=== PATIENT | male | born 1965 | race African-American/Black ===

== ENCOUNTER 2017-01-02 12:31 | Outpatient (CLI) | payer MEDICARE ==
--- NOTE | 2017-01-02 19:13 | RAD ---
LEFT FOOT THREE VIEWS 01/02/17 Comparison is made with a 02/29/[address] [facility]. There has been prior amputation of the great toe at the level of the distal first metatarsal shaft a nd the second toe at the second MTP joint. There is bony overgrowth at the end of the remaining first metatarsal. There were no areas of bony d isruption here to strongly suggest active osteomyelitis. MRI or nuclear bone scanning would be more sensitive, however. There is some periosteal reaction and mild sclerosis of the second metatarsal. T here is some deformity of the second metatarsal head. All of this appears more likely chronic than a cute, however. The remainder of the foot appeared intact. IMPRESSION: Chronic changes but nothing that was strongly suggestive of osteomyelitis (with the caveat that plai n films often are the last to show change). POS: HOME
== END 2017-01-02 12:32 | disposition home or self-care (01) ==
LOC: BURRAD 12:31
PROVIDERS: ATTEND Family Medicine
DX: E11.621 Type 2 diabetes mellitus with foot ulcer (principal); L97.509 Non-pressure chronic ulcer of other part of unspecified foot with unspecified severity

== ENCOUNTER 2017-03-14 14:53 | Outpatient (CLI) | payer MEDICARE ==
--- NOTE | 2017-03-14 17:20 | RAD ---
LEFT FOOT THREE VIEWS: 03/14/17 Comparison is made with the 01/02/17 study. Prior amputation of the great toe at the level of the dist al first metatarsal is seen, as well as amputation of the second toe at the second MTP joint. There is deformity of the second metatarsal head. The ends of the first and second metatarsal are irregula rity but look no different than the prior study. There are currently no plain film findings that wou ld strongly suggest osteomyelitis. The bones are otherwise unremarkable. IMPRESSION: Chronic changes but no acute bony findings. POS: HOME
== END 2017-03-14 14:54 | disposition home or self-care (01) ==
LOC: BURRAD 14:53
PROVIDERS: ATTEND Podiatrist Foot & Ankle Surgery
DX: L97.522 Non-pressure chronic ulcer of other part of left foot with fat layer exposed (principal)

== ENCOUNTER 2018-12-03 11:30 | Emergency (ER) | payer MEDICARE ==
[2018-12-03] MEDS ORDERED: Ketorolac Tromethamine 60 MG/2 ML VIAL ONE (11:38)
[2018-12-03] MEDS ORDERED: Bacitracin 1 PK ONE (11:40)
[2018-12-03] MEDS ORDERED: HYDROcodone/Acetaminophen 5/325 mg Tablet ONE (11:52)
== END 2018-12-03 11:55 | disposition home or self-care (01) ==
LOC: BURERS 11:30
DX: T22.212A Burn of second degree of left forearm, initial encounter (principal); T31.0 Burns involving less than 10% of body surface; I25.10 Atherosclerotic heart disease of native coronary artery without angina pectoris; E78.5 Hyperlipidemia, unspecified; E66.9 Obesity, unspecified; I10 Essential (primary) hypertension; F41.9 Anxiety disorder, unspecified; Z79.899 Other long term (current) drug therapy; Z79.4 Long term (current) use of insulin; Z87.891 Personal history of nicotine dependence; X12.XXXA Contact with other hot fluids, initial encounter
CPT/HCPCS: 16020; 96372; J1885

== ENCOUNTER 2021-12-12 10:17 | Emergency (ER) | payer MEDICARE ==
[2021-12-12] MEDS ORDERED: Sulfameth/Trimethoprim DS 800-160mg TAB ONE (10:35)
== END 2021-12-12 10:42 | disposition home or self-care (01) ==
LOC: BURERS 10:17
DX: S60.423A Blister (nonthermal) of left middle finger, initial encounter (principal); L03.012 Cellulitis of left finger; I25.10 Atherosclerotic heart disease of native coronary artery without angina pectoris; E78.5 Hyperlipidemia, unspecified; E78.00 Pure hypercholesterolemia, unspecified; E66.9 Obesity, unspecified; E11.9 Type 2 diabetes mellitus without complications; I10 Essential (primary) hypertension; Z87.891 Personal history of nicotine dependence; X58.XXXA Exposure to other specified factors, initial encounter; Y92.096 Garden or yard of other non-institutional residence as the place of occurrence of the external cause
CPT/HCPCS: 99283

== ENCOUNTER 2022-06-16 16:10 | Emergency (ER) | payer MEDICARE, OTHER ==
[2022-06-16] MEDS ORDERED: Boostrix 0.5 ML (Tdap) VIAL (>/=7 yrs of age) ONE (16:51)
[2022-06-16] MEDS ORDERED: Ibuprofen 200 MG TAB ONE (17:03)
[2022-06-16] MEDS ORDERED: Bacitracin 1 PK ONE (17:17)
== END 2022-06-16 17:46 | disposition home or self-care (01) ==
LOC: BURERS 16:10
DX: S50.812A Abrasion of left forearm, initial encounter (principal); I25.10 Atherosclerotic heart disease of native coronary artery without angina pectoris; E78.00 Pure hypercholesterolemia, unspecified; E66.9 Obesity, unspecified; I10 Essential (primary) hypertension; E11.9 Type 2 diabetes mellitus without complications; W22.8XXA Striking against or struck by other objects, initial encounter; Y93.G3 Activity, cooking and baking; Z23 Encounter for immunization; Z87.891 Personal history of nicotine dependence; Z79.84 Long term (current) use of oral hypoglycemic drugs; Z79.899 Other long term (current) drug therapy
CPT/HCPCS: 90471; 90715

== ENCOUNTER 2022-09-25 22:20 | Emergency (ER) | payer MEDICARE ==
[2022-09-25] MEDS ORDERED: cefTRIAXone (ROCEPHIN) 2 GM VIAL ONE (22:30)
[2022-09-25 22:58] LABS: #Basophils 0.1 thou/uL (0.0-0.2); #Eosinphils 0.4 thou/uL (0.0-0.7); #Lymphocytes 3.6 thou/uL (1.20-3.40); #Monocytes 1.1 thou/uL (0.11-0.59); #Neutrophils 7.3 thou/uL (1.40-6.50); %Basophils 0.9 % (0.0-1.0); %Eosinophils 3.3 % (0.0-10.0); %Lymphocytes 28.8 % (21.0-51.0); Hemoglobin 12.3 g/dL (14.0-18.0); Mean Corpuscular HGB CONC 32.2 g/dL (32.0-36.0); Mean Platelet Volume 5.8 fL (7.4-10.4); Platelet Count 369 10x3/uL (130-400); RBC Distribution Width 14.3 % (11.5-14.5); Red Blood Cell (RBC) Count 4.54 mill/uL (4.70-6.10); White Blood Cell (WBC) Count 12.6 10x3/uL (4.8-10.8)
[2022-09-25 23:12] LABS: ALT (SGPT) 15 U/L (8-55); AST (SGOT) 16 U/L (5-34); Albumin 3.7 g/dL (3.5-5.0); Alkaline Phosphatase 45 U/L (40-110); Anion Gap 14 mmol/L (10-20); BUN (Urea Nitrogen) 28 mg/dL (8.4-25.7); Bilirubin, Total 0.3 mg/dL (0.2-1.2); Calc. Creatinine Clearance 0 mL/min (70-130); Calcium 9.2 mg/dL (7.8-10.44); Carbon Dioxide 26 mmol/L (22-29); Chloride 104 mmol/L (98-107); Estimated GFR 29; Globulin 3.7 g/dL (2.4-3.5); Glucose 70 mg/dL (70-105); Potassium 3.7 mmol/L (3.5-5.1); Protein, Total 7.4 g/dL (6.0-8.3); Sodium 140 mmol/L (136-145)
== END 2022-09-25 23:30 | disposition short-term general hospital (02) ==
LOC: BURERS 22:20
DX: T25.221A Burn of second degree of right foot, initial encounter (principal); T23.251A Burn of second degree of right palm, initial encounter; T31.0 Burns involving less than 10% of body surface; E11.42 Type 2 diabetes mellitus with diabetic polyneuropathy; I25.10 Atherosclerotic heart disease of native coronary artery without angina pectoris; I10 Essential (primary) hypertension; E66.9 Obesity, unspecified; X10.0XXA Contact with hot drinks, initial encounter; Z87.891 Personal history of nicotine dependence; Z79.4 Long term (current) use of insulin; Z89.422 Acquired absence of other left toe(s)
CPT/HCPCS: 80053; 85025; 96365; J0696